=== PATIENT | female | born 1990 | race Caucasian/White ===

== ENCOUNTER 2017-08-03 01:46 | Inpatient (IN) | payer MEDICAID, OTHER ==
[2017-08-03 02:25] LABS: HEMATOCRIT 40.9 % (36.0-47.0); HEMOGLOBIN 14.1 g/dl (12.0-15.5); MEAN CORPUSCULAR HEMOGLOBIN 29.7 pg (27.0-33.0); MEAN CORPUSCULAR HGB CONC 34.5 g/dl (32.0-36.5); MEAN CORPUSCULAR VOLUME 86.1 fl (80.0-96.0); PLATELET COUNT, AUTOMATED 314 10^3/uL (150-450); RED BLOOD COUNT 4.75 10^6/uL (4.00-5.40); RED CELL DISTRIBUTION WIDTH 12.8 % (11.5-14.5); WHITE BLOOD COUNT 8.2 10^3/uL (4.0-10.0)
[2017-08-03 02:33] LABS: CONTROL LINE HCG INT CTR LINE PRESENT; HCG, SERUM QUALITATIVE NEGATIVE (NEGATIVE)
[2017-08-03 02:44] LABS: AMPHETAMINES LEVEL URINE NEGATIVE (NEGATIVE); BARBITURATES URINE NEGATIVE (NEGATIVE); BENZODIAZEPINES URINE NEGATIVE (NEGATIVE); CANNABINOIDS URINE NEGATIVE (NEGATIVE); COCAINE METABOLITE URINE NEGATIVE (NEGATIVE); METHADONE URINE NEGATIVE (NEGATIVE); OPIATES URINE NEGATIVE (NEGATIVE); PHENCYCLIDINE URINE NEGATIVE (NEGATIVE)
[2017-08-03 02:46] LABS: ALBUMIN 4.1 GM/DL (3.2-5.2); ALBUMIN/GLOBULIN RATIO 1.11 (1.00-1.93); ALKALINE PHOSPHATASE 107 U/L (45-117); ALT/SGPT 49 U/L (12-78); ANION GAP 7 MEQ/L (8-16); AST/SGOT 27 U/L (7-37); BILIRUBIN,DIRECT < 0.1 MG/DL (0.0-0.2); BILIRUBIN,TOTAL 0.3 MG/DL (0.2-1.0); BLOOD UREA NITROGEN 8 MG/DL (7-18); CALCIUM LEVEL 8.5 MG/DL (8.5-10.1); CARBON DIOXIDE LEVEL 23 MEQ/L (21-32); CHLORIDE LEVEL 111 MEQ/L (98-107); CREATININE FOR GFR 0.68 MG/DL (0.55-1.30); ETHYL ALCOHOL (ETHANOL) 0.164 % (0.000-0.010); GLOMERULAR FILTRATION RATE > 60.0 (>60); GLUCOSE, FASTING 101 MG/DL (70-100); SODIUM LEVEL 141 MEQ/L (136-145); TOTAL PROTEIN 7.8 GM/DL (6.4-8.2)
[2017-08-03 03:06] LABS: ACETAMINOPHEN LEVEL < 2.0 UG/ML (10.0-30.0)
[2017-08-03] MEDS ORDERED: traZODone 50 MG TAB PO (04:45)
[2017-08-03] MEDS ORDERED: MAALOX 30 ML SUSP *UDC PO (04:45)
[2017-08-03] MEDS ORDERED: MOM 30ML SUSPENSION UDC PO (04:45)
[2017-08-03] MEDS ORDERED: ACETAMINOPHEN TAB 650MG DOSE (2X325MG) PO (04:45)
[2017-08-03] MEDS: NICOTINE 21MG/24HR 1 EA TRANSDERMAL TD (08:50)
[2017-08-04] MEDS: NICOTINE 21MG/24HR 1 EA TRANSDERMAL TD (09:00)
== END 2017-08-04 12:50 | disposition home or self-care (01) | DRG 881 ==
LOC: M ED 01:46 → M ED INP 04:36 → M PSY 05:25
DX: F43.21 Adjustment disorder with depressed mood (principal); F60.89 Other specific personality disorders; F17.200 Nicotine dependence, unspecified, uncomplicated

== ENCOUNTER → 2018-06-13 | Outpatient (CLI) | payer OTHER ==
[2018-06-15 08:20] LABS: MUMPS VIRUS IgG ANTIBODY 70.9 AU/mL (Immune >10.9)
[2018-06-15 10:02] LABS: RUBELLA IgG QUALITATIVE IMMUNE (IMMUNE)
== END ==
LOC: M WUC 18:31
PROVIDERS: ATTEND Physician Assistant
DX: Z02.1 Encounter for pre-employment examination (principal)

== ENCOUNTER → 2018-10-09 | Outpatient (CLI) | payer OTHER, SELFPAY ==
[2018-10-09 19:40] LABS: ALT/SGPT 22 U/L (12-78); BILIRUBIN,TOTAL 0.3 MG/DL (0.2-1.0); CREATININE FOR GFR 0.62 MG/DL (0.55-1.30); GLOMERULAR FILTRATION RATE > 60.0 (>60); LDH LACTATE DEHYDROGENASE 162 U/L (84-246); URIC ACID 3.2 MG/DL (2.6-6.0)
[2018-10-09 19:59] LABS: BASO % 0.2 % (0.0-1.0); EOS # 0.1 10^3/uL (0.0-0.50); EOS % 1.2 % (0.0-3.0); HEMATOCRIT 40.1 % (36.0-47.0); HEMOGLOBIN 13.5 g/dl (12.0-15.5); LYMPH # 2.4 10^3/uL (1.5-6.5); LYMPH % 21.6 % (24.0-44.0); MEAN CORPUSCULAR HEMOGLOBIN 30.7 pg (27.0-33.0); MEAN CORPUSCULAR HGB CONC 33.7 g/dl (32.0-36.5); MEAN CORPUSCULAR VOLUME 91.1 fl (80.0-96.0); MONO # 0.5 10^3/uL (0.0-0.8); MONO % 4.8 % (0.0-5.0); NEUTROPHILS # 8.1 10^3/uL (1.8-7.7); NEUTROPHILS % 71.8 % (36.0-66.0); PLATELET COUNT, AUTOMATED 257 10^3/uL (150-450); WHITE BLOOD COUNT 11.2 10^3/uL (4.0-10.0)
[2018-10-09 20:06] LABS: TOTAL PROTEIN,RANDOM URINE 22.5 MG/DL (0.0-12.0)
[2018-10-09 21:10] LABS: CHLAMYDIA DNA AMPLIFICATION NEGATIVE (NEGATIVE); GC DNA AMPLIFICATION NEGATIVE (NEGATIVE)
[2018-10-10 10:05] LABS: RUBELLA IgG QUALITATIVE IMMUNE (IMMUNE)
[2018-10-10 10:34] LABS: HEPATITIS C VIRUS ABY INDEX 0.1 INDEX (<0.8)
[2018-10-10 10:35] LABS: HIV 1&2 SCREEN CENTAUR NEGATIVE (NEGATIVE)
[2018-10-16 14:07] LABS: HPV HYBRID CAPTURE II Positive (Negative)
== END ==
LOC: M SMT 11:01
PROVIDERS: ATTEND Advanced Practice Midwife
DX: Z34.81 Encounter for supervision of other normal pregnancy, first trimester (principal); Z3A.09 9 weeks gestation of pregnancy

== ENCOUNTER → 2018-11-06 | Outpatient (CLI) | payer OTHER | LOC: M SMT 13:18 | PROVIDERS: ATTEND Advanced Practice Midwife | DX: Z34.82 Encounter for supervision of other normal pregnancy, second trimester (principal); Z3A.00 Weeks of gestation of pregnancy not specified ==

== ENCOUNTER → 2018-12-06 | Outpatient (CLI) | payer OTHER ==
--- NOTE | 2018-12-07 03:57 | REP ---
Clinical: Anatomical evaluation. Comparison: None . Findings: Examination demonstrates a single live intrauterine in variable presentation. motion is identified by technologist. Placenta is noted anterior and grade zero without evidence for placenta previa or abruption. Amniotic fluid volume is normal. Cervix measures 4.3 cm in length and appears closed. No evidence for nuchal cord. Gestational age by current measurements 17 weeks 3 days with ISABEL 05/13/2019 . FHR equals 155 beats per minute. Estimated weight 199 grams ( 49th percentile). Limited early anatomical assessment demonstrates normal cranium, cord plexus, stomach, cord insertion/three-vessel cord, bladder, and spine. Impression: Single live early intrauterine at 17 weeks 3 days gestational age. Complete anatomical assessment should be performed at 20-23 weeks. Electronically Signed by Miguel Mckeon MD 12/07/2018 03:49 A
== END ==
LOC: M RAD 13:16
PROVIDERS: ATTEND Advanced Practice Midwife
DX: Z34.82 Encounter for supervision of other normal pregnancy, second trimester (principal); Z36.89 Encounter for other specified antenatal screening; Z3A.17 17 weeks gestation of pregnancy

== ENCOUNTER → 2019-01-04 | Outpatient (CLI) | payer OTHER ==
--- NOTE | 2019-01-04 19:42 | REP ---
Obstetric sonography: History: Supervision of for anatomy. Follow up anatomy. Findings: Scanning through the gravid uterus demonstrates a viable single intrauterine gestation in a variable lie. motion is observed and heart rate is recorded at 139 beats per minute. An anterior grade 0 placenta is seen without evidence of previa. Amniotic fluid is subjectively normal. Closed cervical length is 4.6 cm. No extrauterine abnormalities observed. There has been appropriate interval growth. Facial profile is seen but nose and lips are less than optimally seen today. There is an echogenic focus in the left ventricle. The following a additional anatomic structures are identified today and felt to be unremarkable: cranium, choroid plexus, cavum, cerebellum and posterior fossa, lungs, left and right ventricular outflow tract views, diaphragm, left-sided stomach, three-vessel cord, kidneys and bladder, upper and lower extremities. Biometry chart: BPD 5.3 cm = 22 weeks 0 days HC 19.2 cm = 21 weeks 3 days AC 18.3 cm = 23 weeks 1 day FL 3.5 cm = 21 weeks 0 days HL 3.5 cm = 21-week 6 days HC/AC ratio normal 1.05. Cephalic index normal 0.77. Estimated weight 475 grams, 1 pound 0 ounces, 45th percentile for 22 weeks 1 day. Impression: Viable single intrauterine gestation at 21 weeks 6 days by today's composite sonographic criteria. Expected gestational age estimate based on prior sonography is 21 weeks 4 days. ISABEL by prior sonography May 13, 2019. Facial profile is seen but nose and lips less than optimally seen today. Electronically Signed by Alfie Jarquin MD 01/04/2019 07:54 P
== END ==
LOC: M RAD 14:57
PROVIDERS: ATTEND Advanced Practice Midwife
DX: O99.332 Smoking (tobacco) complicating pregnancy, second trimester (principal)

== ENCOUNTER → 2019-02-05 | Outpatient (CLI) | payer OTHER ==
[2019-02-05 19:23] LABS: HEMATOCRIT 32.7 % (36.0-47.0); HEMOGLOBIN 10.6 g/dl (12.0-15.5); MEAN CORPUSCULAR HEMOGLOBIN 30.5 pg (27.0-33.0); MEAN CORPUSCULAR HGB CONC 32.4 g/dl (32.0-36.5); PLATELET COUNT, AUTOMATED 286 10^3/uL (150-450); RED BLOOD COUNT 3.48 10^6/uL (4.00-5.40); WHITE BLOOD COUNT 15.5 10^3/uL (4.0-10.0)
== END ==
LOC: M SMT 13:24
PROVIDERS: ATTEND Advanced Practice Midwife
DX: Z36.89 Encounter for other specified antenatal screening (principal); Z3A.00 Weeks of gestation of pregnancy not specified

== ENCOUNTER → 2019-02-12 | Outpatient (CLI) | payer OTHER ==
--- NOTE | 2019-02-12 14:36 | REP ---
OB ULTRASOUND: Real-time sonographic evaluation of the gravid uterus performed. There is a single living intrauterine gestation with an estimated gestational age 27 weeks 5 days, EDC 05/09/2019. Today's measurements indicate appropriate growth. Biometry and Growth: BPD 69 mm = 27 weeks 5 days, 51st percentile HC 256 mm = 27 weeks 6 days, 53rd percentile AC 228 mm = 27 weeks 2 days, 40th percentile FL 52 mm = 27 weeks 5 days, 52nd percentile HC/AC ratio 1.12 within normal range. Estimated weight 1084 grams 37th percentile. SEEN/GROSSLY UNREMARKABLE Lateral ventricles Yes Posterior fossa Yes Upper lip Yes Four-chamber heart Yes. Echogenic focus in the left ventricle likely could be related to cordae tendinea. LVOT Yes RVOT No Stomach Yes Cord insertion Yes Three vessel cord Yes Kidneys Yes Bladder Yes Spine Yes Cervical length: Closed and measures 5.4 cm in length heart rate: 139 beats per minute. position: Vertex. Placenta: Anterior and grade 1 with no previa or abruption. Amniotic fluid: Within normal limits. Electronically Signed by Adama Allen MD 02/12/2019 02:40 P
== END ==
LOC: M RAD 13:36
PROVIDERS: ATTEND Advanced Practice Midwife
DX: Z34.82 Encounter for supervision of other normal pregnancy, second trimester (principal); Z3A.27 27 weeks gestation of pregnancy

== ENCOUNTER → 2019-02-13 | Outpatient (CLI) | payer OTHER | LOC: M LAB 06:51 | PROVIDERS: ATTEND Advanced Practice Midwife | DX: R73.02 Impaired glucose tolerance (oral) (principal) ==

== ENCOUNTER → 2019-03-14 | Outpatient (CLI) | payer OTHER ==
--- NOTE | 2019-03-14 14:45 | REP ---
Clinical: Anatomical evaluation. Comparison: 02/12/2019 . Findings: Examination demonstrates a single live intrauterine in cephalic presentation. motion is identified by technologist. Placenta is noted anterior and grade I I without evidence for placenta previa or abruption. Amniotic fluid volume is normal. Cervix appears closed. No evidence for nuchal cord. Gestational age by LMP 32 weeks 0 days with ISABEL 05/09/2019 . Gestational age by current measurements 31 weeks 4 days with ISABEL 05/12/2019. FHR equals 158 beats per minute. BPD 7.9 cm 91 weeks 6 days HC 28.7 cm 31 weeks 4 days AC 28.5 cm 32 weeks 3 days FL 5.9 cm 30 weeks 5 days HL 5.3 cm 31 weeks 0 days HC/AC ratio 1.01 Estimated weight 1838 grams ( 39th percentile). Amniotic fluid index: 19.6 cm Umbilical cord SD ratio: 2.56 Biophysical profile score: 8/8 Impression: Single live intrauterine in cephalic presentation demonstrating appropriate interval growth. Amniotic fluid volume and biophysical profile score normal. Electronically Signed by Miguel Mckeon MD 03/14/2019 02:36 P
== END ==
LOC: M RAD 13:57
PROVIDERS: ATTEND Advanced Practice Midwife
DX: O24.419 Gestational diabetes mellitus in pregnancy, unspecified control (principal); Z3A.31 31 weeks gestation of pregnancy

== ENCOUNTER 2019-04-09 15:22 | Outpatient (CLI) | payer OTHER ==
[~2019-04-09] VITALS: Ht 160 cm; Wt 99.1 kg
[2019-04-09 15:43] VITALS: BP 112/58
[2019-04-09] MEDS ORDERED: PRENTAB9 PO (16:32)
--- NOTE | 2019-04-09 17:43 | IPN ---
DATE: 04/09/2019 A 29-year-old G2, P1 at 35-5/7 weeks gestation presents from the office after audible deceleration was heard during Doppler testing. Good movement. No vaginal bleeding. No contractions. OBJECTIVE: Blood pressure 112/58, pulse 85. She is in no apparent distress. Head and exam normal. Lungs clear. Heart regular rate and rhythm. Abdomen nontender gravid. heart tones are category 1. Contractions none. Extremities nontender. ASSESSMENT: A 28-year-old G2, P1 at 35-5/7 weeks gestation with good movement, reassuring testing. PLAN: Discharge home. Followup in the office as scheduled.
== END 2019-04-09 16:40 | disposition home or self-care (01) ==
LOC: M LDO 15:22
PROVIDERS: ATTEND Specialist
DX: O36.8330 Maternal care for abnormalities of the fetal heart rate or rhythm, third trimester, not applicable or unspecified (principal); Z3A.35 35 weeks gestation of pregnancy

== ENCOUNTER → 2019-04-10 | Outpatient (REF) | payer OTHER ==
[~2019-04-10] MED LIST: PRENTAB9 PO
== END ==
LOC: M SFHCWAGY 12:54
PROVIDERS: ATTEND Advanced Practice Midwife
DX: O36.8130 Decreased fetal movements, third trimester, not applicable or unspecified (principal); Z3A.00 Weeks of gestation of pregnancy not specified

== ENCOUNTER 2019-04-14 14:28 | Inpatient (IN) | payer OTHER ==
[~2019-04-14] VITALS: Ht 160 cm; Wt 100.4 kg
[2019-04-14] MEDS ORDERED: LR 1,000 ML IV SCH (14:30)
[2019-04-14] MEDS ORDERED: LACTATED RINGER'S 1000 ML IV STA (14:30)
[2019-04-14] MEDS ORDERED: OXYTOCIN 30 UNITS IN 0.9% NaCl 500ML IV BAG (J2590) As Ordered ONE (14:45)
[2019-04-14 14:58] LABS: HEMATOCRIT 34.7 % (36.0-47.0); HEMOGLOBIN 11.4 g/dl (12.0-15.5); MEAN CORPUSCULAR HEMOGLOBIN 28.7 pg (27.0-33.0); MEAN CORPUSCULAR HGB CONC 32.9 g/dl (32.0-36.5); MEAN CORPUSCULAR VOLUME 87.4 fl (80.0-96.0); PLATELET COUNT, AUTOMATED 272 10^3/uL (150-450); RED BLOOD COUNT 3.97 10^6/uL (4.00-5.40)
[2019-04-14] MEDS ORDERED: FENTANYL 2MCG/ML ROPIVACAINE 0.2% IN 0.9% NACL 100ML IVBAG As Ordered ONE (15:07)
--- NOTE | 2019-04-14 15:12 | HPE ---
DATE OF ADMISSION: 04/14/2019 This is a 29-year-old G2, P1 female at 36-3/7 weeks gestation presents with regular contractions for the last hour and a half prior to admission. She started leaking fluid some time before this, she does not know the exact time. Her contractions increased in intensity. COURSE: [facility] care [facility]. She has had no complications. OBSTETRICAL HISTORY: December 2008: 33 week vaginal delivery, 2 pound 14 ounce male infant. She was induced due to preeclampsia. MEDICAL HISTORY: Noncontributory. SURGICAL HISTORY: None. SOCIAL HISTORY: The patient has female sexual partners. She denies alcohol or drug use. FAMILY HISTORY: Noncontributory. PHYSICAL EXAMINATION: 124/74, pulse 84. She appears uncomfortable. HEAD AND NECK EXAM: Normal. LUNGS: Clear. HEART: Regular rate and rhythm. ABDOMEN: Nontender, gravid. HEART TONES: Category 1. STERILE VAGINAL EXAM: 5 cm, 100% effaced, -1, ruptured, clear. EXTREMITIES: Nontender. PREOPERATIVE LABORATORIES: Abnormal 3-hour glucose tolerance test (GTT). ASSESSMENT: A 29-year-old G2, P1 at 36-3/7 weeks gestation presents in active labor. PLAN: Patient is admitted on 04/14/2019. Group B Streptococcus (GBS) negative.
[2019-04-14] MEDS ORDERED: diphenhydrAMINE INJ 50MG/ML VIAL (J1200) IV PRN (15:15)
[2019-04-14] MEDS ORDERED: EPIDURAL/PCA KEYS XX PRN (15:15)
[2019-04-14] MEDS ORDERED: FENTANYL/ROPIVACAINE/NACL BAG 100 ML EPIDURAL SCH (15:15)
[2019-04-14] MEDS ORDERED: ONDANSETRON 4MG/2ML VIAL (J2405) IV PRN ×2 (15:15→16:00)
[2019-04-14] MEDS ORDERED: NALOXONE INJ 0.4 MG/1 ML VIAL (J2310) IV PRN (15:15)
[2019-04-14] MEDS ORDERED: ePHEDrine SULFATE 25 MG/5 ML(5MG/ML) SYRINGE IV PRN (15:15)
[2019-04-14] MEDS ORDERED: EPIDURAL COMMENT XX SCH (15:15)
[2019-04-14] MEDS ORDERED: REFRIGERATOR IV KEYS XX PRN (15:15)
[2019-04-14] MEDS ORDERED: LACTATED RINGER'S 1000 ML IV PRN (15:15)
[2019-04-14] MEDS ORDERED: RHOGAM 300 MCG (1500 IU) INJ (J2790) IM SCH (16:00)
[2019-04-14] MEDS ORDERED: MEASLES,MUMPS,RUBELLA VACCINE INJ (MMR-II) (90707) SC SCH (16:00)
[2019-04-14] MEDS ORDERED: ACETAMINOPHEN 500 MG TAB PO PRN (16:00)
[2019-04-14] MEDS ORDERED: METHYLERGONOVINE MALEATE 0.2 MG TAB PO PRN (16:00)
[2019-04-14] MEDS ORDERED: ACETAMINOPHEN TAB 650MG DOSE (2X325MG) PO PRN (16:00)
[2019-04-14] MEDS ORDERED: OXYTOCIN DRIP 30 UNITS in IV 1 EA IV ONE (16:00)
[2019-04-14] MEDS ORDERED: DIBUCAINE 1% OINTMENT 30GM TOP PRN (16:00)
[2019-04-14] MEDS ORDERED: DOCUSATE SODIUM 100 MG CAP PO PRN (16:00)
[2019-04-14] MEDS ORDERED: IBUPROFEN 600 MG TAB PO PRN (16:00)
[2019-04-14 17:34] VITALS: BP 118/63
[2019-04-15] MEDS: IBUPROFEN 800 MG TAB PO PRN ×2 (05:46→23:59)
[2019-04-15 06:00] VITALS: BP 113/64
[2019-04-15] MEDS: PRENATAL VITAMINS CHEWABLE TABLET PO SCH (08:53)
[2019-04-15 18:03] VITALS: BP 118/66
[2019-04-16 05:28] VITALS: BP 115/59
--- NOTE | 2019-04-16 07:15 | DN ---
DATE OF DELIVERY: 04/14/2019 PREDELIVERY DIAGNOSIS: 36 and 4/7 weeks gestation, active labor. POSTDELIVERY DIAGNOSIS: Delivered. PROCEDURE: Spontaneous vaginal delivery. FELTING MACHINE OPERATOR HELPER: Dr. Gutierrez Farrell ANESTHESIA: None. ESTIMATED BLOOD LOSS: 300 mL. FINDINGS: 5 pound 9 ounce male , Apgars 8 and 9. DELIVERY SUMMARY: After a short second stage consisting of 5 minutes, the patient had spontaneous delivery of a 5 pound 9 ounce male infant, Apgars 8 and 9, with no delivery anesthesia. There was no nuchal cord. The shoulders delivered with ease. The infant was handed to the mother and cried immediately. The cord was doubly clamped and cut. The placenta delivered spontaneously and appeared to be intact. The patient received IV Pitocin after delivery of the placenta. There were no vaginal lacerations present. Sponge counts were correct.
[2019-04-16] MEDS ORDERED: ACET-683 PO (07:28)
[2019-04-16] MEDS ORDERED: IBUP80TA PO (07:28)
[2019-04-16] MEDS: PRENATAL VITAMINS CHEWABLE TABLET PO SCH (08:24)
[2019-04-16] MEDS: IBUPROFEN 800 MG TAB PO PRN (08:25)
[2019-04-16] MEDS ORDERED: ADACEL/BOOSTRIX VACCINE (DIPHTH/PERTUSS/ACELL/TETANUS)0.5ML SYR (90715) IM ONE (10:00)
== END 2019-04-16 12:54 | disposition home or self-care (01) | DRG 560 ==
LOC: M LDI 14:28 → M OBS 17:32
PROVIDERS: ADMIT Specialist; ATTEND Specialist
PROC: 10E0XZZ Delivery of Products of Conception, External Approach (ICD-10-PCS; principal; 2019-04-14)
DX: O60.14X0 Preterm labor third trimester with preterm delivery third trimester, not applicable or unspecified (principal); Z37.0 Single live birth; Z3A.36 36 weeks gestation of pregnancy

== ENCOUNTER 2020-03-08 02:26 | Emergency (ER) | payer OTHER ==
[~2020-03-08] VITALS: Ht 177.8 cm; Wt 95.9 kg
[~2020-03-08 02:26] MED LIST changes: +ACET-683 PO; +IBUP80TA PO
[2020-03-08 02:33] VITALS: BP 131/77
[2020-03-08] MEDS ORDERED: TRAM50TA2 PO (14:48)
== END 2020-03-08 03:16 | disposition left against medical advice (07) ==
LOC: M ED 02:26
DX: Z53.29 Procedure and treatment not carried out because of patient's decision for other reasons (principal)

== ENCOUNTER 2020-03-08 13:30 | Emergency (ER) | payer OTHER ==
[~2020-03-08] VITALS: Ht 160 cm; Wt 95.5 kg
[2020-03-08] MEDS ORDERED: PERCOCET 5MG/325MG TAB PO ONE (14:00)
--- NOTE | 2020-03-08 14:15 | REP ---
INDICATION: fall COMPARISON: None. TECHNIQUE: AP, lateral, bilateral oblique views of the left knee. FINDINGS: The osseous structures and joint spaces are intact and normal. There is no evidence for acute fracture or dislocation. No joint effusion is appreciated. Surrounding soft tissues are unremarkable. No subcutaneous emphysema or radiodense foreign body. IMPRESSION: Normal examination. No acute fracture or dislocation. <Electronically signed by Miguel Mckeon > 03/08/20 [id number]
[2020-03-08] MEDS ORDERED: TRAM50TA2 PO (14:48)
[2020-03-08] MEDS ORDERED: BENZOIN TINCTURE 60ML BTL As Ordered ONE (15:04)
[2020-03-08 15:12] VITALS: BP 121/63
== END 2020-03-08 15:23 | disposition home or self-care (01) ==
LOC: M ED 13:30
DX: S83.92XA Sprain of unspecified site of left knee, initial encounter (principal); S01.112A Laceration without foreign body of left eyelid and periocular area, initial encounter; T14.8XXA Other injury of unspecified body region, initial encounter; W19.XXXA Unspecified fall, initial encounter; Y92.099 Unspecified place in other non-institutional residence as the place of occurrence of the external cause; Y93.9 Activity, unspecified; Y99.9 Unspecified external cause status; F17.200 Nicotine dependence, unspecified, uncomplicated; Z88.8 Allergy status to other drugs, medicaments and biological substances

== ENCOUNTER 2020-09-18 13:30 | Outpatient (RCR) | payer MEDICAID ==
[~2020-09-18 13:30] MED LIST changes: +TRAM50TA2 PO
== END 2020-10-17 ==
LOC: M OUTALCOH 13:30
PROVIDERS: ATTEND Psychiatry & Neurology Psychiatry
DX: Z03.89 Encounter for observation for other suspected diseases and conditions ruled out (principal); Z72.0 Tobacco use

== ENCOUNTER → 2023-03-21 | Outpatient (REF) | payer OTHER | LOC: M LAB REF 21:46 | PROVIDERS: ATTEND Physician Assistant | DX: B34.9 Viral infection, unspecified (principal) ==